=== PATIENT | female | born 1995 | race African-American/Black ===

== ENCOUNTER 2016-06-20 11:36 | Emergency (ER) | payer MEDICAID ==
[~2016-06-20] VITALS: Ht 162.6 cm; Wt 90.0 kg
[~2016-06-20 11:36] MED LIST: ALBU0.086 NEB; ZOFR8TAB PO
[2016-06-20 11:38] VITALS: BP 126/62; PULSE 70; RESP 16; TEMP 98; O2SAT 99
--- NOTE | 2016-06-20 12:04 | PD ---
HPI Chief Complaint: Complaint Time Seen by Provider: 12:01 Travel History International Travel<30 days: No Contact w/Intl Traveler<30days: No Traveled to known affect area: No History of Present Illness HPI Patient is an 81-year-old female presenting with dysuria. Present for 2 days. She has increased urgency and frequency. She states she is also on her menstrual cycle but denies any increased flow or new vaginal discharge. She denies any pelvic, back or flank pain. She denies fever, chills, nausea and vomiting. She denies and has no concern for STD as she has not had intercourse for 3-4 months, no missed menstrual cycles. She has history of asthma which is well controlled. Denies tobacco, ethanol and illicit drug use. PFSH Past Medical History Medical History: Denies Significant Hx Asthma: Yes Anxiety: No Depression: No Diminished Hearing: No Respiratory: Yes (ASTHMA) Influenza Vaccination: Yes ?: Not LMP: NOW : 1 Para: 0 : 1 Past Surgical History Other Surgery: No Social History Alcohol Use: No Tobacco Use: No Substance Use: No Allergies-Medications (Allergen,Severity, Reaction): Coded Allergies: Peanut (Verified Allergy, Severe, hives, 03/25/16) SESAME (Verified Allergy, Severe, 03/25/16) Seafood (Verified Allergy, Severe, hives, 03/25/16) Reported Meds & Prescriptions Reported Meds & Active Scripts Active Macrobid (Nitrofurantoin Monoh/Nitrofur Macro) 100 Mg Cap 100 Mg PO BID 5 Days Zofran Tab (Ondansetron HCl) 8 Mg Tab 8 Mg PO DAILY Reported Proventil Ud 0.083% (2.5 Mg/3 Ml) (Albuterol Sulfate) 2.5 Mg/3 Ml Inha 2.5 Mg NEB Q4HR NEB Review of Systems Except as stated in HPI: all other systems reviewed are Neg Physical Exam Narrative GENERAL: Well-developed and well-nourished adult female in no acute distress. SKIN: Warm and dry. Good turgor without tenting. HEAD: Normocephalic and atraumatic. EYES: PERRL bilaterally, 5mm. EOMI bilaterally. No injection or icterus present. No proptosis. Lids without edema or erythema. ENT: Buccal mucosa pink and moist. Oropharynx free of erythema, tonsillar hypertrophy, masses, swelling, asymmetry and exudates. Uvula midline and airway patent. NECK: Supple, no meningeal signs. Trachea midline, no JVD. No cervical or facial lymphadenopathy. CARDIOVASCULAR: Regular rate and rhythm without murmurs, rubs, clicks or gallops. Radial and posterior tibial pulses 2+ bilaterally. No pedal edema. RESPIRATORY: Clear to auscultation bilaterally with symmetrical rise and fall, no distress or use of accessory muscles. GASTROINTESTINAL: Non-tender, non-distended. Normal bowel sounds all 4 quadrants. No masses or organomegaly present. Negative bilateral CVA tenderness. MUSCULOSKELETAL: Patient freely moving all four extremities spontaneously. Extremities without clubbing, cyanosis, or edema. No obvious deformities. NEUROLOGIC: CN II-XII grossly intact. Awake and alert. Motor grossly within normal limits. Normal speech. PSYCHIATRIC: Appropriate mood and affect; insight and judgment normal. Data Data Last Documented VS Vital Signs Date Time Temp Pulse Resp B/P Pulse Ox O2 Delivery O2 Flow Rate FiO2 06/20/16 11:38 98.0 70 16 126/62 99 Room Air Orders Urinalysis - C+S If Indicated (06/20/16 11:52) Urine Culture (06/20/16 11:50) Labs Laboratory Tests Test 06/20/16 11:50 Urine Color YELLOW Urine Turbidity HAZY Urine pH 7.5 Urine Specific [place] 1.013 Urine Protein NEG mg/dL Urine Glucose (UA) NEG mg/dL Urine Ketones NEG mg/dL Urine Occult Blood LARGE Urine Nitrite NEG Urine Bilirubin NEG Urine Urobilinogen LESS THAN 2.0 MG/DL Urine Leukocyte Esterase MOD Urine RBC 3 /hpf Urine WBC 45 /hpf Urine WBC Clumps FEW Urine Squamous Epithelial 4 /hpf Cells Urine Transitional Epithelial 1 /hpf Cells Urine Bacteria OCC /hpf Microscopic Urinalysis Comment CULTURE INDICATED MDM Medical Decision Making Medical Screen Exam Complete: Yes Emergency Medical Condition: Yes Interpretation(s) Laboratory Tests Test 06/20/16 11:50 Urine Color YELLOW (YELLW/STRAW) Urine Turbidity HAZY (CLEAR) Urine pH 7.5 (5.0-8.5) Urine Specific [place] 1.013 (1.002-1.035) Urine Protein NEG mg/dL (NEG-TRACE) Urine Glucose (UA) NEG mg/dL (NEG) Urine Ketones NEG mg/dL (NEG) Urine Occult Blood LARGE (NEG) Urine Nitrite NEG (NEG) Urine Bilirubin NEG (NEG) Urine Urobilinogen LESS THAN 2.0 MG/DL (LESS THAN 2.0) Urine Leukocyte Esterase MOD (NEG) Urine RBC 3 /hpf (0-3) Urine WBC 45 /hpf (0-5) Urine WBC Clumps FEW (NONE) Urine Squamous Epithelial 4 /hpf (0-5) Cells Urine Transitional Epithelial 1 /hpf (NONE) Cells Urine Bacteria OCC /hpf (NONE) Microscopic Urinalysis Comment CULTURE INDICATED Differential Diagnosis Cystitis versus UTI versus pyelonephritis versus STD versus dysuria Narrative Course Patient is a 20-year-old female presenting with history suggestive of uncomplicated cystitis. She is afebrile, nontoxic and has no systemic complaints. No symptoms suggestive of STD or pyelonephritis. Abdomen is soft and benign on exam. She is especially active has no pelvic discharge or pelvic discomfort pelvic exam is deferred. UA shows WBCs with clumps, bacteria and positive for leukocyte esterase. Large occult blood likely secondary to menses however could be from the cystitis as well. Patient will be treated with Macrobid and recommend follow-up with PCP or urologist for test of cure and further evaluation as she states she has frequent UTIs.See discharge paperwork for further instructions. The plan was discussed with the patient who acknowledged their understanding and agreement. Reinforced the follow-up with primary care is critically important. Patient instructed on emergent conditions that should prompt return to ED. Diagnosis Primary Impression: Cystitis Referrals: [facility] Patient Instructions: General Instructions, Urinary Tract Infection in Women ( ED) Additional Instructions: Take medication as prescribed Drink plenty of fluids to stay hydrated and flush urinary system Call for culture results and follow up with PCP in 48 hours Recommend follow with urologist to discuss frequent urinary tract infections Return to the ED for any acute worsening of symptoms including fever, nausea, vomiting Med/Other Pt SpecificInfo: Prescription(s) given Scripts Nitrofurantoin Monohydrate Macrocrystals (Macrobid)100 Mg Bpx511 Mg PO BID 5 Days Prov:Isi Mosley MD 06/20/16 Disposition: 01 DISCHARGE HOME Condition: Stable Corey Oro III Jun 20, 2016 12:04
[2016-06-20 12:37] LABS: BACTERIA, URINE OCC /hpf; BLOOD, URINE LARGE (NEG); GLUCOSE,URINE NEG (NEG); KETONE, URINE NEG (NEG); NITRITE,URINE NEG (NEG); PH, URINE 7.5 (5.0-8.5); SQUAMOUS EPITHELIAL CELL URINE 4 /hpf (0-5); TRANSITIONAL EPI CELLS, URINE 1 /hpf; URINE COLOR YELLOW (YELLW/STRAW)
[2016-06-20 12:40] LABS: COMMENT (UR) CULTURE INDICATED; CULTURE IF INDICATED CULTURE INDICATED
[2016-06-20] MEDS ORDERED: MACR100C2 PO (12:45)
[2016-06-20 13:02] VITALS: BP 121/68
== END 2016-06-20 13:03 | disposition home or self-care (01) ==
LOC: NEPA 11:36
DX: N30.90 Cystitis, unspecified without hematuria (principal); J45.909 Unspecified asthma, uncomplicated
CPT/HCPCS: 81001; 86403; 87086; 99283

== ENCOUNTER 2016-09-23 23:05 | Emergency (ER) | payer MEDICAID ==
[~2016-09-23 23:05] MED LIST changes: +MACR100C2 PO
[2016-09-23 23:06] VITALS: BP 134/63; PULSE 80; RESP 18; TEMP 97.8; O2SAT 97
--- NOTE | 2016-09-23 23:36 | PD ---
HPI Chief Complaint: Seizure Time Seen by Provider: 23:28 Travel History International Travel<30 days: No Contact w/Intl Traveler<30days: No Traveled to known affect area: No History of Present Illness HPI This patient was examined in the presence of a female nurse at all times. She is a 20-year-old female who presents by private vehicle for evaluation. Reportedly the patient's friends dropped the patient off that the ambulance bay by friends who told the paramedics that she was having a seizure. The paramedics told nursing that the patient was not having a seizure. The patient now presents in delta pod. She is awake and alert however she is refusing to speak. She is able to communicate and she is rolling her eyes during attempts at questioning. She is breathing at a normal rate. 2344: Eventually the patient became willing to whisper. She appears to be whispering normally with no muffled voice. She says that she has had a cough and chest pain for 1.5 weeks. The cough is dry, occasionally she coughs up specks of blood. She reports that she was seen at an outside emergency room and diagnosed with "fluid in the lungs" yesterday. She was given prescriptions for steroids and codeine and she was discharged. She is denying any sore throat or the sensation of difficulty swallowing. She does endorse a hoarse voice. She says that she does not want to speak. She has no other complaints. PFSH Past Medical History Asthma: Yes Anxiety: No Depression: No Diminished Hearing: No Respiratory: Yes (ASTHMA) ?: Unknown : 1 Para: 0 : 1 Past Surgical History Surgical History: No Previous Surgery Other Surgery: No Social History Alcohol Use: No Tobacco Use: No Substance Use: No Allergies-Medications (Allergen,Severity, Reaction): Coded Allergies: Peanut (Verified Allergy, Severe, hives, 03/25/16) SESAME (Verified Allergy, Severe, 03/25/16) Seafood (Verified Allergy, Severe, hives, 03/25/16) Reported Meds & Prescriptions Reported Meds & Active Scripts Active Macrobid (Nitrofurantoin Monoh/Nitrofur Macro) 100 Mg Cap 100 Mg PO BID 5 Days Zofran Tab (Ondansetron HCl) 8 Mg Tab 8 Mg PO DAILY Reported Proventil Ud 0.083% (2.5 Mg/3 Ml) (Albuterol Sulfate) 2.5 Mg/3 Ml Inha 2.5 Mg NEB Q4HR NEB Review of Systems ROS Limitations: Refused Except as stated in HPI: all other systems reviewed are Neg Physical Exam Exam Limitations: Refused Narrative GENERAL: This is a well-developed well-nourished female who is in no acute distress. Vital signs are been reviewed. She refuses to speak. She whispers normally. Voice is not muffled. There is no stridor or drooling. SKIN: Warm and dry. HEAD: Atraumatic. Normocephalic. EYES: Pupils equal and round. No scleral icterus. No injection or drainage. ENT: No nasal bleeding or discharge. Mucous membranes pink and moist. No oropharyngeal erythema or exudate. NECK: Trachea midline. No JVD. There is no lymphadenopathy. CARDIOVASCULAR: Regular rate and rhythm. No murmur appreciated. RESPIRATORY: No accessory muscle use. Clear to auscultation. Breath sounds equal bilaterally. GASTROINTESTINAL: Abdomen soft, non-tender, nondistended. Hepatic and splenic margins not palpable. MUSCULOSKELETAL: No obvious deformities. There is tenderness to palpation to the anterior chest wall. There is no lower extremity edema, negative Homans. NEUROLOGICAL: Awake and alert. No obvious cranial nerve deficits. Motor grossly within normal limits. Normal speech. PSYCHIATRIC: Appropriate mood and affect; insight and judgment normal. Data Data Last Documented VS Vital Signs Date Time Temp Pulse Resp B/P Pulse Ox O2 Delivery O2 Flow Rate FiO2 09/24/16 00:02 105 17 147/82 100 Room Air 09/23/16 23:06 97.8 Orders Electrocardiogram (09/23/16 23:44) Basic Metabolic Panel (Bmp) (09/23/16 23:44) Complete Blood Count With Diff (09/23/16 23:44) D-Dimer (09/23/16 23:44) Chest, Single Ap (09/23/16 23:44) Ecg Monitoring (09/23/16 23:44) Iv Access Insert/Monitor (09/23/16 23:44) Ketorolac Inj (Toradol Inj) (09/23/16 23:45) Ed Urine Pregnancytest Poc (09/23/16 23:44) Labs Laboratory Tests Test 09/24/16 00:35 White Blood Count 7.3 TH/MM3 Red Blood Count 4.85 MIL/MM3 Hemoglobin 12.1 GM/DL Hematocrit 37.9 % Mean Corpuscular Volume 78.2 FL Mean Corpuscular Hemoglobin 24.9 PG Mean Corpuscular Hemoglobin 31.8 % Concent Red Cell Distribution Width 15.1 % Platelet Count 343 TH/MM3 Mean Platelet Volume 7.9 FL Neutrophils (%) (Auto) 69.2 % Lymphocytes (%) (Auto) 22.5 % Monocytes (%) (Auto) 8.2 % Eosinophils (%) (Auto) 0.0 % Basophils (%) (Auto) 0.1 % Neutrophils # (Auto) 5.1 TH/MM3 Lymphocytes # (Auto) 1.7 TH/MM3 Monocytes # (Auto) 0.6 TH/MM3 Eosinophils # (Auto) 0.0 TH/MM3 Basophils # (Auto) 0.0 TH/MM3 CBC Comment AUTO DIFF D-Dimer Quantitative (PE/DVT) 0.28 MG/L FEU Sodium Level 138 MEQ/L Potassium Level 4.1 MEQ/L Chloride Level 106 MEQ/L Carbon Dioxide Level 25.2 MEQ/L Anion Gap 7 MEQ/L Blood Urea Nitrogen 13 MG/DL Creatinine 0.93 MG/DL Estimat Glomerular Filtration 94 ML/MIN Rate Random Glucose 107 MG/DL Calcium Level 8.7 MG/DL MDM Medical Decision Making Medical Screen Exam Complete: Yes Emergency Medical Condition: Yes Medical Record Reviewed: Yes Differential Diagnosis Pleurisy, pericarditis, myocarditis, pulmonary embolism, bronchitis, asthma exacerbation, pneumonia, pleural effusion Narrative Course This 20-year-old female presents with a chief complaint of cough, hoarse voice, anterior chest pain that is worse when breathing for the past 1.5 weeks. Diagnosed with "fluid in the lungs" yesterday in an outside emergency room and given prescriptions for steroids as well as codeine. Her pain seems to be reproducible palpation. She has no evidence of DVT. She does endorse occasional hemoptysis. A d-dimer will be ordered. Plan is for chest x-ray, basic lab work, EKG. The patient will be given Toradol. 0120: Lab work imaging studies have all been reviewed and found to be very reassuring and normal. Her d-dimer is within normal limits. Her chest x-ray reveals no evidence of pleural effusion or pneumonia. Her EKG reveals no ischemic pattern. Her lab work is unremarkable. She has no leukocytosis. Upon recheck she is feeling improved after the administration of Toradol. She has 2 family members who are now in her room and provided additional history. They support the history that the patient has had a cough and anterior pleuritic chest pain for the past week. She has had cold symptoms. She was seen last night in an outside emergency room. She was prescribed prednisone and Tylenol with codeine. She became drowsy after taking a Tylenol with Codeine tablet this evening. She has not been drowsy at all during her hospital visit. I recommended that she quit taking the Tylenol with Codeine as she clearly had an adverse reaction to it. She is encouraged to continue taking the prednisone. She is stable for discharge. Diagnosis Primary Impression: Pleurisy Additional Impression: Bronchitis Departure Forms: School Release, Return to School Date: Sep 26, 2016 Tests/Procedures, Work Release Enter return to work date: Sep 26, 2016 Additional Instructions: Quit taking the Tylenol with Codeine because it made you drowsy and lethargic. Take the prednisone as prescribed. Stable hydrated and well-nourished. Take [id number] Tylenol or Motrin for discomfort. Follow-up with primary care physician as needed and return for any acutely new or worsening symptoms. Med/Other Pt SpecificInfo: No Change to Meds Disposition: 01 DISCHARGE HOME Condition: Stable Misbah Yanez Sep 23, 2016 23:36
[2016-09-23] MEDS ORDERED: KETOROLAC TROMETHAMINE 30 MG/ML (IVP) VIAL IVP ONE (23:45)
[2016-09-24 00:02] VITALS: BP 147/82; PULSE 105; RESP 17; O2SAT 100
--- NOTE | 2016-09-24 00:21 | RADRPT ---
EXAM DATE/TIME: 09/23/2016 23:57 [facility] COMPARISON: No previous studies available for comparison. INDICATIONS : Mid sternal chest pains x 1 week. MEDICAL HISTORY : Asthma SURGICAL HISTORY : None. ENCOUNTER: Initial ACUITY: 1 day PAIN SCORE: 9/10 LOCATION: Bilateral chest FINDINGS: A single view of the chest demonstrates the lungs to be symmetrically aerated without evidence of mas s, infiltrate or effusion. The cardiomediastinal contours are unremarkable. Osseous structures are intact. CONCLUSION: Normal examination. Eddie cMcormack Jr., MD on September 24, 2016 at 0:20 Board Certified Radiologist. This report was verified electronically.
[2016-09-24 01:01] LABS: AUTOMATED NEUTROPHIL # 5.1 TH/MM3 (1.8-7.7); BASOPHIL % 0.1 % (0.0-2.0); HEMATOCRIT 37.9 % (35.0-46.0); LYMPH % 22.5 % (9.0-44.0); LYMPHOCYTE # 1.7 TH/MM3 (1.0-4.8); MEAN CELL VOLUME 78.2 FL (80.0-100.0); MEAN CORPUSCULAR HEMOGLOBIN 24.9 PG (27.0-34.0); MEAN CORPUSCULAR HGB CONC 31.8 % (32.0-36.0); MONO % 8.2 % (0.0-8.0); NEUT % 69.2 % (16.0-70.0); PLATELET COUNT 343 TH/MM3 (150-450); RED BLOOD COUNT 4.85 MIL/MM3 (4.00-5.30); RED CELL DISTRIBUTION WIDTH 15.1 % (11.6-17.2); WHITE BLOOD COUNT 7.3 TH/MM3 (4.0-11.0)
[2016-09-24 01:05] LABS: HEMO FLAGS AUTO DIFF
[2016-09-24 01:13] LABS: BICARBONATE 25.2 MEQ/L (21.0-32.0); POTASSIUM 4.1 MEQ/L (3.5-5.1)
[2016-09-24 02:00] LABS: SCAN/DIFF AUTO DIFF CONFIRMED
[2016-09-24 03:41] VITALS: BP 112/55
--- NOTE | 2016-09-24 13:19 | EKG ---
Date Performed: 09/24/2016 Time Performed: 00:24:45 PTAGE: 20 years EKG: Sinus rhythm WITH SINUS ARRHYTHMIA NORMAL ECG NO PREVIOUS TRACING DOCTOR: Lee Padilla Interpretating Date/Time 09/24/2016 13:16:57
== END 2016-09-24 03:43 | disposition home or self-care (01) ==
LOC: NEPD 23:05
DX: R09.1 Pleurisy (principal); J40 Bronchitis, not specified as acute or chronic
CPT/HCPCS: 71010; 80048; 84703; 85025; 85379; 93005; 96374; 99284; J1885

== ENCOUNTER 2016-11-19 15:51 | Emergency (ER) | payer MEDICAID ==
[~2016-11-19] VITALS: Ht 162.6 cm; Wt 92.1 kg
[2016-11-19 15:52] VITALS: BP 130/71; PULSE 86; RESP 20; TEMP 98; O2SAT 100
--- NOTE | 2016-11-19 16:34 | PD ---
HPI Chief Complaint: Chest Pain Time Seen by Provider: 16:34 Travel History International Travel<30 days: No Contact w/Intl Traveler<30days: No Traveled to known affect area: No History of Present Illness HPI 21 year-old female history of asthma presents to the emergency department for evaluation of a left anterior chest pain. Patient states this has been intermittently occurring for the last 2 months. She states that last time she was here she was told that this was pleurisy but she completed her medication and the symptoms still continue to occur. Denies any worsening shortness of breath. States that her albuterol inhaler does help to improve this. States the pain does not radiate anywhere. He reports seeing her primary care provider who is in [place] and being told not to use her albuterol inhaler frequently, so she is unsure what to do. Denies any recent illnesses, fever, chills. No other symptoms to report at this time. PFSH Past Medical History Asthma: Yes Anxiety: No Depression: No Diminished Hearing: No Respiratory: Yes (ASTHMA ) ?: Unknown : 1 Para: 0 : 1 Past Surgical History Other Surgery: No Social History Alcohol Use: No Tobacco Use: No Substance Use: No Allergies-Medications (Allergen,Severity, Reaction): Coded Allergies: Peanut (Verified Allergy, Severe, hives, 11/19/16) SESAME (Verified Allergy, Severe, 11/19/16) Seafood (Verified Allergy, Severe, hives, 11/19/16) Reported Meds & Prescriptions Reported Meds & Active Scripts Active Ventolin Hfa 18 GM Inh (Albuterol Sulfate) 90 Mcg/Act Aer 2 Puff INH Q4H PRN Duoneb (Ipratropium-Albuterol Neb) 0.5-2.5 Mg/3 Ml Neb 1 Nebule INH Q4HR NEB PRN Prednisone 50 Mg Tab 50 Mg PO DAILY 5 Days Reported Symbicort Inh (Budesonide/Formoterol Fumarate) 80-4.5 Mcg/Act Aero 1 Puff INH Q12HR Ventolin Hfa 18 GM Inh (Albuterol Sulfate) 90 Mcg/Act Aer 1 Puff INH Q4H PRN Review of Systems Except as stated in HPI: all other systems reviewed are Neg Physical Exam Narrative GENERAL: Well-nourished, well-developed male patient in no acute distress SKIN: Focused skin assessment warm/dry. HEAD: Normocephalic. EYES: No scleral icterus. No injection or drainage. NECK: Supple, trachea midline. No JVD or lymphadenopathy. CARDIOVASCULAR: Regular rate and rhythm without murmurs, gallops, or rubs. RESPIRATORY: Breath sounds equal bilaterally. No accessory muscle use. GASTROINTESTINAL: Abdomen soft, non-tender, nondistended. MUSCULOSKELETAL: No cyanosis, or edema. BACK: Nontender without obvious deformity. No CVA tenderness. Data Data Last Documented VS Vital Signs Date Time Temp Pulse Resp B/P Pulse Ox O2 Delivery O2 Flow Rate FiO2 11/19/16 16:48 76 18 97 Room Air 11/19/16 15:52 98.0 130/71 Orders Electrocardiogram (11/19/16 ) Chest, Single Ap (11/19/16 ) Methylprednisolone So Succ Inj (Solumedr (11/19/16 17:00) Albuterol-Ipratropium Neb (Duoneb Neb) (11/19/16 17:00) MDM Medical Decision Making Medical Screen Exam Complete: Yes Emergency Medical Condition: Yes Medical Record Reviewed: Yes Differential Diagnosis Bronchospasm versus pleuritic pain versus costochondritis versus less likely PE versus unlikely ACS Narrative Course 21 year-old female presents to emergency department for evaluation of left- sided chest pain, the pain does not radiate anywhere. She has not been recently ill. This has been intermittently ongoing for the last 2 months her last visit here in emergency department. At that time the patient was diagnosed with pleurisy. Patient appears well. She is without distress. She is not tachycardic. She is afebrile. Patient is given DuoNeb treatment here when I walked into the room, she was holding her side. She then requested that I test her for diabetes. I find the patient that we would not be testing her for diabetes here in emergency department and that this could be done outpatient her primary care provider's office. I encouraged her to place her DuoNeb treatment back in place to see if this would help her symptoms. Patient be started on a course of oral steroids. She is encouraged follow-up with primary care provider. Diagnosis Primary Impression: Chest wall pain Additional Impressions: Bronchospasm History of asthma Referrals: Primary Care Physician Patient Instructions: Bronchospasm (ED), General Instructions Additional Instructions: Humidified air may help to alleviate symptoms Follow-up with your primary care provider If you're staying local, a local primary care provider is recommended Return immediately with any acute worsening of symptoms Med/Other Pt SpecificInfo: Prescription(s) given Scripts Albuterol 18 GM Inh (Ventolin Hfa 18 GM Inh)90 Mcg/Act Aer2 Puff INH Q4H PRN ( SHORTNESS OF BREATH) #1 INHALER Ref 0 Prov:Radha Rodrigues 11/19/16 Ipratropium-Albuterol Neb (Duoneb)0.5-2.5 Mg/3 Ml Neb1 Nebule INH Q4HR NEB PRN ( SOB/WHEEZING) #180 NEBULE Ref 0 Prov:Radha Rodrigues 11/19/16 Prednisone 50 Mg Tab50 Mg PO DAILY 5 Days Ref 0 Prov:Radha Rodrigues 11/19/16 Disposition: 01 DISCHARGE HOME Condition: Stable Radha Rodrigues Nov 19, 2016 16:34
[2016-11-19] MEDS ORDERED: VENTAER INH ×2 (16:43→17:29)
[2016-11-19] MEDS ORDERED: SYMB80AE INH (16:43)
[2016-11-19] MEDS ORDERED: methylPREDNISolone SOD SUCC 125 MG/2 ML VIAL IVP ONE (17:00)
[2016-11-19] MEDS: RESP: ALBUTEROL 2.5 MG/IPRATROPIUM 0.5 MG NEB (SCH) INH ×3 (17:15→17:40)
--- NOTE | 2016-11-19 17:22 | RADRPT ---
EXAM DATE/TIME: 11/19/2016 16:55 [facility] COMPARISON: No previous studies available for comparison. INDICATIONS : Chest pain MEDICAL HISTORY : Asthma SURGICAL HISTORY : None. ENCOUNTER: Initial ACUITY: 1 day PAIN SCORE: 4/10 LOCATION: Bilateral chest FINDINGS: A single view of the chest demonstrates the lungs to be symmetrically aerated without evidence of mas s, infiltrate or effusion. The cardiomediastinal contours are unremarkable. Osseous structures are intact. CONCLUSION: No evidence of acute cardiopulmonary disease. Corey Davis MD on November 19, 2016 at 17:19 Board Certified Radiologist. This report was verified electronically.
[2016-11-19] MEDS ORDERED: IPRASOL INH (17:29)
[2016-11-19] MEDS ORDERED: PRED50 PO (17:29)
--- NOTE | 2016-11-20 12:26 | EKG ---
Date Performed: 11/19/2016 Time Performed: 16:48:36 PTAGE: 21 years EKG: Sinus rhythm NORMAL ECG PREVIOUS TRACING : 09/24/2016 00.24 Compared to prior tracing no significant change DOCTOR: Nicolás Coleman Interpretating Date/Time 11/20/2016 12:23:01
== END 2016-11-19 18:48 | disposition home or self-care (01) ==
LOC: NEPC 15:51
DX: R07.89 Other chest pain (principal); J98.01 Acute bronchospasm; J45.909 Unspecified asthma, uncomplicated
CPT/HCPCS: 71010; 93005; 94640; 94664; 96374; 99284; J2930

== ENCOUNTER 2017-05-23 12:44 | Emergency (ER) | payer MEDICAID ==
[~2017-05-23 12:44] MED LIST changes: -ALBU0.086 NEB; +IPRASOL INH; -MACR100C2 PO; +PRED50 PO; +SYMB80AE INH; +VENTAER INH; -ZOFR8TAB PO
[2017-05-23 12:46] VITALS: BP 136/73; PULSE 71; RESP 16; TEMP 98.5; O2SAT 100
[2017-05-23] MEDS ORDERED: diphenhydrAMINE HCL 25 MG CAP PO ONE (13:30)
[2017-05-23] MEDS ORDERED: DIPH25CA PO (13:30)
--- NOTE | 2017-05-23 13:30 | PD ---
HPI Chief Complaint: Metal Inspector Problem/Complaint Time Seen by Provider: 13:18 Travel History International Travel<30 days: No Contact w/Intl Traveler<30days: No Traveled to known affect area: No History of Present Illness HPI Patient is a 21-year-old female who presents to emergency room with complaints of vaginal pruritus after changing her soaps one week ago. Patient reports that she used to use Dove unscented soap but decided to try Aveeno scented as she has very sensitive skin and was told that Aveeno was better than Dove. Patient reports that since then, she's had vaginal pruritus and a slight discharge. Patient denies any rash. Denies any abdominal pain. Denies any fever/chills. Request to be treated for possible sensitivity to Aveeno cleansing lotion [facility] Past Medical History Asthma: Yes Anxiety: No Depression: No Diminished Hearing: No Respiratory: Yes (ASTHMA ) LMP: 05/09/2017 : 1 Para: 0 : 1 Past Surgical History Other Surgery: No Social History Alcohol Use: No Tobacco Use: No Substance Use: No Allergies-Medications (Allergen,Severity, Reaction): Coded Allergies: Fish Containing Products (Verified Allergy, Severe, hives, 05/23/17) ipratropium (Verified Allergy, Severe, hives, 05/23/17) sesame seed (Verified Allergy, Severe, hives, 05/23/17) Reported Meds & Prescriptions Reported Meds & Active Scripts Active Diphenhydramine (Diphenhydramine HCl) 25 Mg Cap 25 Mg PO Q6H PRN 5 Days Ventolin Hfa 18 GM Inh (Albuterol Sulfate) 90 Mcg/Act Aer 2 Puff INH Q4H PRN Reported Symbicort Inh (Budesonide/Formoterol Fumarate) 80-4.5 Mcg/Act Aero 1 Puff INH Q12HR Review of Systems General / Constitutional: No: Fever Eyes: No: Visual changes HENT: No: Headaches Cardiovascular: No: Chest Pain or Discomfort Respiratory: No: Shortness of Breath Gastrointestinal: No: Abdominal Pain Genitourinary: Positive: Discharge, No: Dysuria Musculoskeletal: No: Pain Skin: No Rash Neurologic: No: Weakness Psychiatric: No: Depression Endocrine: No: Polydipsia Hematologic/Lymphatic: No: Easy Bruising Physical Exam Narrative GENERAL: Well-nourished, well-developed patient. SKIN: Focused skin assessment warm/dry. HEAD: Normocephalic. EYES: No scleral icterus. No injection or drainage. NECK: Supple, trachea midline. No JVD or lymphadenopathy. CARDIOVASCULAR: Regular rate and rhythm without murmurs, gallops, or rubs. RESPIRATORY: Breath sounds equal bilaterally. No accessory muscle use. GASTROINTESTINAL: Abdomen soft, non-tender, nondistended. : exam performed with RN at bedside, patient with no obvious discharge, no erythema or edema or swelling, patient refuses internal pelvic exam MUSCULOSKELETAL: No cyanosis, or edema. BACK: Nontender without obvious deformity. No CVA tenderness. Data Data Last Documented VS Vital Signs Date Time Temp Pulse Resp B/P (MAP) Pulse Ox O2 Delivery O2 Flow Rate FiO2 05/23/17 12:46 98.5 71 16 136/73 (94) 100 Room Air Orders Orders Urinalysis - C+S If Indicated (05/23/17 12:52) Ed Urine Pregnancytest Poc (05/23/17 12:52) Diphenhydramine (Benadryl) (05/23/17 13:30) Labs Laboratory Tests Test 05/23/17 13:00 Urine Color LIGHT-YELLOW Urine Turbidity CLEAR Urine pH 6.0 Urine Specific [place] 1.013 Urine Protein NEG mg/dL Urine Glucose (UA) NEG mg/dL Urine Ketones NEG mg/dL Urine Occult Blood NEG Urine Nitrite NEG Urine Bilirubin NEG Urine Urobilinogen LESS THAN 2.0 MG/DL Urine Leukocyte Esterase NEG Urine RBC LESS THAN 1 /hpf Urine WBC 1 /hpf Urine Squamous Epithelial Cells 2 /hpf Urine Bacteria RARE /hpf Urine Mucus FEW /lpf Microscopic Urinalysis Comment CULT NOT INDICATED MDM Medical Decision Making Medical Screen Exam Complete: Yes Emergency Medical Condition: Yes Medical Record Reviewed: Yes Interpretation(s) Vital Signs Date Time Temp Pulse Resp B/P (MAP) Pulse Ox O2 Delivery O2 Flow Rate FiO2 05/23/17 12:46 98.5 71 16 136/73 (94) 100 Room Air Differential Diagnosis Contact dermatitis, cervicitis, UTI Narrative Course During the course of the patients emergency department visit, the patients history, examination, and differential diagnosis were reviewed with the patient. The patient was placed on a media monitor with oximetry and frequent blood pressure monitoring. The patient was initially provided Benadryl for pruritus Patient refuses internal exam testing for gonorrhea and chlamydia, she is currently not sexually active and had a recent STD panel which was negative. The patients laboratory studies were reviewed and remarkable for: Laboratory Tests Test 05/23/17 13:00 Urine Color LIGHT-YELLOW (YELLW/STRAW) Urine Turbidity CLEAR (CLEAR) Urine pH 6.0 (5.0-8.5) Urine Specific [place] 1.013 (1.002-1.035) Urine Protein NEG mg/dL (NEG-TRACE) Urine Glucose (UA) NEG mg/dL (NEG) Urine Ketones NEG mg/dL (NEG) Urine Occult Blood NEG (NEG) Urine Nitrite NEG (NEG) Urine Bilirubin NEG (NEG) Urine Urobilinogen LESS THAN 2.0 MG/DL (LESS Urine Leukocyte Esterase NEG (NEG) Urine RBC LESS THAN 1 /hpf (0-3) Urine WBC 1 /hpf (0-5) Urine Squamous Epithelial Cells 2 /hpf (0-5) Urine Bacteria RARE /hpf (NONE) Urine Mucus FEW /lpf (OCC) Microscopic Urinalysis Comment CULT NOT INDICATED Discussed with patient need to stop using Aveeno and restart using Dove. She will follow up with computer application developer, will return to the emergency room as needed. Diagnosis Primary Impression: Contact dermatitis Qualified Codes: L24.3 - Irritant contact dermatitis due to cosmetics Patient Instructions: General Instructions Additional Instructions: Stop using Aveeno Wash Follow up with your primary care doctor/automat car attendant Return to ER as needed Med/Other Pt SpecificInfo: Prescription(s) given Scripts Diphenhydramine (Diphenhydramine) 25 Mg Cap 25 MG PO Q6H Y for ALLERGIES for 5 Days, #20 CAP 0 Refills Prov: Haley Rodriguez DO 05/23/17 Disposition: 01 DISCHARGE HOME Condition: Stable Haley Rodriguez DO May 23, 2017 13:30
[2017-05-23 13:31] LABS: BACTERIA, URINE RARE /hpf; BILIRUBIN, URINE NEG (NEG); BLOOD, URINE NEG (NEG); GLUCOSE,URINE NEG (NEG); KETONE, URINE NEG (NEG); MUCUS URINE FEW /lpf (OCC); NITRITE,URINE NEG (NEG); SQUAMOUS EPITHELIAL CELL URINE 2 /hpf (0-5); URINE COLOR LIGHT-YELLOW (YELLW/STRAW); URINE LEUKOCYTE ESTERASE NEG (NEG)
[2017-05-23 13:50] VITALS: BP 109/76; TEMP 97.8
== END 2017-05-23 13:50 | disposition home or self-care (01) ==
LOC: NEPD 12:44
DX: L24.3 Irritant contact dermatitis due to cosmetics (principal)
CPT/HCPCS: 81001; 84703; 99283

== ENCOUNTER 2017-06-02 11:07 | Emergency (ER) | payer MEDICAID ==
[~2017-06-02] VITALS: Ht 162.6 cm; Wt 86.0 kg
[~2017-06-02 11:07] MED LIST changes: +DIPH25CA PO; -IPRASOL INH; -PRED50 PO
[2017-06-02 11:08] VITALS: BP 128/66; PULSE 79; RESP 16; TEMP 99; O2SAT 99
--- NOTE | 2017-06-02 11:44 | PD ---
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 Had the same episode about 3-4 weeks ago and was treated at [facility] for yeast infection with Diflucan. After Diflucan her symptoms subsided and returned about a week ago. She has been using [id number] Monistat for the past 7 days with no relief of symptoms. Thinks 3 irritation may be related to her tub soap. And is dysuria, but reports urinary frequency. No fever, vomiting, abdominal pain. Has not taken any other medications or any other treatments to alleviate her symptoms. No known relieving factors. Symptoms are mild in severity. Denies risk of . Denies sexual intercourse for many years. No primary care provider in this area. History of asthma. Allergies to fish containing products, ipratropium, sesame seeds. No other medical complaints. No other modifying factors or associated signs and symptoms. PFSH Past Medical History Asthma: Yes Anxiety: No Depression: No Diminished Hearing: No Respiratory: Yes (ASTHMA ) ?: Not LMP: 05/09/17 : 1 Para: 0 : 1 Past Surgical History Surgical History: No Previous Surgery Other Surgery: No Social History Alcohol Use: No Tobacco Use: No Substance Use: No Allergies-Medications (Allergen,Severity, Reaction): Coded Allergies: Fish Containing Products (Verified Allergy, Severe, hives, 05/23/17) ipratropium (Verified Allergy, Severe, hives, 05/23/17) sesame seed (Verified Allergy, Severe, hives, 05/23/17) Reported Meds & Prescriptions Reported Meds & Active Scripts Active Ventolin Hfa 18 GM Inh (Albuterol Sulfate) 90 Mcg/Act Aer 2 Puff INH Q4H PRN Reported Symbicort Inh (Budesonide/Formoterol Fumarate) 80-4.5 Mcg/Act Aero 1 Puff INH Q12HR Review of Systems Except as stated in HPI: all other systems reviewed are Neg Physical Exam Narrative GENERAL: Well-nourished, well-developed black female patient, in no acute distress; afebrile, nontoxic-appearing SKIN: Warm and dry. HEAD: Atraumatic. Normocephalic. EYES: Pupils equal and round. No scleral icterus. No injection or drainage. ENT: Mucous membranes pink and moist. NECK: Trachea midline. No lymphadenopathy. CARDIOVASCULAR: Regular rate and rhythm. No murmur appreciated. RESPIRATORY: No accessory muscle use. Clear to auscultation. Breath sounds equal bilaterally. GASTROINTESTINAL: Abdomen soft, non-tender, nondistended. Bilateral pelvic region nontender to palpation. Hepatic and splenic margins not palpable. No guarding, rigidity, rebound tenderness. PELVIC: Exam done in the presence of a nurse. Patient declined speculum exam: Patient declined bimanual exam. No lesions noted to the outer vagina; no vaginal discharge noted visualization of the vagina. No groin lymphadenopathy or tenderness on palpation. BACK: No CVA tenderness. MUSCULOSKELETAL: No obvious deformities. No clubbing. No cyanosis. No edema. NEUROLOGICAL: Awake and alert. No obvious cranial nerve deficits. Motor grossly within normal limits. Normal speech. PSYCHIATRIC: Appropriate mood and affect; insight and judgment normal. Data Data Last Documented VS Vital Signs Date Time Temp Pulse Resp B/P (MAP) Pulse Ox O2 Delivery O2 Flow Rate FiO2 06/02/17 11:08 99.0 79 16 128/66 (86) 99 Room Air Orders Orders Wet Prep Profile (06/02/17 11:18) Urinalysis - C+S If Indicated (06/02/17 11:18) Ed Urine Pregnancytest Poc (06/02/17 11:18) Gc And Chlamydia Pcr (06/02/17 11:37) Urine Culture (06/02/17 11:48) Labs Laboratory Tests Test 06/02/17 11:48 Urine Color LIGHT-YELLOW Urine Turbidity CLEAR Urine pH 7.5 Urine Specific [place] 1.010 Urine Protein NEG mg/dL Urine Glucose (UA) NEG mg/dL Urine Ketones NEG mg/dL Urine Occult Blood NEG Urine Nitrite NEG Urine Bilirubin NEG Urine Urobilinogen LESS THAN 2.0 MG/DL Urine Leukocyte Esterase NEG Urine RBC LESS THAN 1 /hpf Urine WBC LESS THAN 1 /hpf Urine Squamous Epithelial Cells 2 /hpf Urine Bacteria MOD /hpf Urine Hyaline Casts 1 /lpf Microscopic Urinalysis Comment CULTURE INDICATED Clue Cells (Wet Prep) NONE SEEN Vaginal Trichomonas (Wet Prep) NONE SEEN Vaginal Yeast (Wet Prep) NONE SEEN MDM Medical Decision Making Medical Screen Exam Complete: Yes Emergency Medical Condition: Yes Medical Record Reviewed: Yes Differential Diagnosis Vaginal yeast, bacterial vaginosis, vaginitis, UTI Narrative Course 24-year-old female with vaginal itching and discharge. She does not want speculum inserted into her vagina. I will perform wet prep test outer vaginal vault. Chlamydia and gonorrhea urine pending. UPT and urinalysis ordered. 1247: Urinalysis with high bacteria, otherwise without signs of infection. Urinalysis reflexed to culture. Suspecting contaminant from vaginal discharge. I will not treat patient for urinary tract infection at this time. Will wait for urine culture for treatment. Trichomonas, vaginitis, bacterial vaginosis negative. Will treat for vaginitis with Diflucan since she responded well to that 3-4 weeks ago with same symptoms. Chlamydia and gonorrhea pending. Diflucan prescribed for home. Instructed patient to follow up with spd tech. Instructed patient to follow up with primary care provider. Patient verbalizes understanding and agreement with treatment plan. Patient is medically cleared and stable for discharge. Discussed reasons to return to the emergency department. Patient agrees with treatment plan. The patients vital signs are stable and the patient is stable for outpatient follow-up and treatment. Patient discharged home, stable and in no acute distress. Diagnosis Primary Impression: Vaginitis Qualified Codes: N76.0 - Acute vaginitis Referrals: Molding Sander Primary Care Physician Patient Instructions: Bacterial Vaginosis (ED), General Instructions, Vaginitis (ED) Additional Instructions: Diflucan as prescribed Maintain good hygiene Follow-up with spd tech Follow-up with primary care provider Return to the emergency department immediately with worsening of symptoms Med/Other Pt SpecificInfo: Prescription(s) given Scripts Fluconazole (Diflucan) 150 Mg Tab 150 MG PO ONCE for Infection, #1 TAB 1 Refill Prov: Erin Blackwell 06/02/17 Disposition: 01 DISCHARGE HOME Condition: Stable Erin Blackwell Jun 02, 2017 11:44
[2017-06-02 12:19] LABS: BACTERIA, URINE MOD /hpf; BILIRUBIN, URINE NEG (NEG); BLOOD, URINE NEG (NEG); GLUCOSE,URINE NEG (NEG); HYALINE CAST, URINE 1 /lpf (RARE); KETONE, URINE NEG (NEG); NITRITE,URINE NEG (NEG); PH, URINE 7.5 (5.0-8.5); SQUAMOUS EPITHELIAL CELL URINE 2 /hpf (0-5); URINE COLOR LIGHT-YELLOW (YELLW/STRAW); URINE LEUKOCYTE ESTERASE NEG (NEG)
[2017-06-02] MEDS ORDERED: DIFL150T PO (12:46)
== END 2017-06-02 13:19 | disposition home or self-care (01) ==
LOC: NEPD 11:07
DX: N76.0 Acute vaginitis (principal); R30.0 Dysuria; R35.0 Frequency of micturition; J45.909 Unspecified asthma, uncomplicated; Z79.51 Long term (current) use of inhaled steroids
CPT/HCPCS: 81001; 84703; 87086; 87210; 87491; 87591; 99283

== ENCOUNTER 2017-06-26 11:18 | Emergency (ER) | payer SELFPAY, MEDICAID | END 2017-06-26 12:25 | disposition home or self-care (01) | LOC: NEPK 11:18 | DX: K08.89 Other specified disorders of teeth and supporting structures (principal); J45.909 Unspecified asthma, uncomplicated | CPT/HCPCS: 99284 ==

== ENCOUNTER 2017-09-12 17:06 | Emergency (ER) | payer OTHER ==
[~2017-09-12] VITALS: Ht 162.6 cm; Wt 90.9 kg
[~2017-09-12 17:06] MED LIST changes: +CLIN150C14 PO; +DIFL150T PO; -DIPH25CA PO; +NAPR500 PO
[2017-09-12 17:12] VITALS: BP 129/64; PULSE 87; RESP 16; TEMP 99.2; O2SAT 99
[2017-09-12 17:43] LABS: BILIRUBIN, URINE NEG (NEG); BLOOD, URINE NEG (NEG); GLUCOSE,URINE NEG (NEG); KETONE, URINE NEG (NEG); NITRITE,URINE NEG (NEG); URINE COLOR YELLOW (YELLW/STRAW); URINE LEUKOCYTE ESTERASE NEG (NEG)
[2017-09-12 17:48] LABS: SQUAMOUS EPITHELIAL CELL URINE 0-2 /hpf (0-5); WBC, URINE 0-2 /hpf (0-5)
[2017-09-12 17:49] LABS: BACTERIA, URINE RARE /hpf
[2017-09-12] MEDS ORDERED: DIFL150T PO (17:54)
--- NOTE | 2017-09-12 18:03 | PD ---
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 she complains of vaginal irritation externally, for one day. recently treated for yeast with diflucan, feels she might need a re-treatment. no pelvic pain or discharge. Symptom severity is mild PFSH Past Medical History Asthma: Yes Anxiety: No Depression: No Diminished Hearing: No Respiratory: Yes (ASTHMA ) Tetanus Vaccination: < 5 Years ?: Not LMP: 08/20/17 : 1 Para: 0 : 1 Past Surgical History Other Surgery: No Social History Alcohol Use: No Tobacco Use: No Substance Use: No Allergies-Medications (Allergen,Severity, Reaction): Coded Allergies: Fish Containing Products (Verified Allergy, Severe, hives, 09/12/17) ipratropium (Verified Allergy, Severe, hives, 09/12/17) sesame seed (Verified Allergy, Severe, hives, 09/12/17) Reported Meds & Prescriptions Reported Meds & Active Scripts Active Diflucan (Fluconazole) 150 Mg Tab 150 Mg PO ONCE Ventolin Hfa 18 GM Inh (Albuterol Sulfate) 90 Mcg/Act Aer 2 Puff INH Q4H PRN Reported Symbicort Inh (Budesonide/Formoterol Fumarate) 80-4.5 Mcg/Act Aero 1 Puff INH Q12HR Review of Systems General / Constitutional: No: Fever HENT: No: Headaches Cardiovascular: No: Chest Pain or Discomfort Physical Exam Narrative GASTROINTESTINAL: Abdomen soft, non-tender, nondistended. Positive bowel sounds. No hepato-splenomegaly, or palpable masses. No guarding. SKIN: Focused skin assessment reveals no rash or ulcers. Skin is warm and dry. Palpation shows no induration or nodules. External genital exam normal Data Data Last Documented VS Vital Signs Date Time Temp Pulse Resp B/P (MAP) Pulse Ox O2 Delivery O2 Flow Rate FiO2 09/12/17 17:12 99.2 87 16 129/64 (85) 99 Orders Orders Urinalysis - C+S If Indicated (09/12/17 17:17) Ed Urine Pregnancytest Poc (09/12/17 17:17) Labs Laboratory Tests Test 09/12/17 17:21 Urine Collection Type CLEAN CATCH Urine Color YELLOW Urine Turbidity CLEAR Urine pH 6.0 Urine Specific [place] 1.025 Urine Protein NEG mg/dL Urine Glucose (UA) NEG mg/dL Urine Ketones NEG mg/dL Urine Occult Blood NEG Urine Nitrite NEG Urine Bilirubin NEG Urine Urobilinogen 0.2 MG/DL Urine Leukocyte Esterase NEG Urine WBC 0-2 /hpf Urine Squamous Epithelial Cells 0-2 /hpf Urine Bacteria RARE /hpf Microscopic Urinalysis Comment CULT NOT INDICATED MDM Medical Decision Making Medical Screen Exam Complete: Yes Emergency Medical Condition: Yes Medical Record Reviewed: Yes Differential Diagnosis Vaginitis, cervicitis, skin lesion Narrative Course I have reviewed the patient's electronic medical record. Exam is benign She requested 1 more dose of Diflucan which I prescribed The patient was advised to follow up with their physician and return if they worsen. Diagnosis Primary Impression: Vaginitis Qualified Codes: N76.0 - Acute vaginitis Referrals: Rn Nursery as needed Patient Instructions: General Instructions, Vaginitis (ED) Departure Forms: Tests/Procedures Additional Instructions: The patient was advised to follow up with their physician and return if they worsen. Med/Other Pt SpecificInfo: Prescription(s) given Scripts Fluconazole (Diflucan) 150 Mg Tab 150 MG PO ONCE for Infection, #1 TAB 1 Refill Prov: French Bermudez MD 09/12/17 Disposition: 01 DISCHARGE HOME Condition: Stable French Bermudez MD Sep 12, 2017 18:03
== END 2017-09-12 18:07 | disposition home or self-care (01) ==
LOC: PHED 17:06
DX: N76.0 Acute vaginitis (principal); J45.909 Unspecified asthma, uncomplicated
CPT/HCPCS: 81001; 84703; 99283